=== PATIENT | female | born 1945 | race Caucasian/White ===

== ENCOUNTER 2017-08-25 10:50 | Outpatient (CLI) | payer MEDICARE, OTHER ==
[2015-04-29 09:23] VITALS: BP 153/90
[2017-08-25 11:36] LABS: eGFR (African) > 60; eGFR (Non-African) > 60
== END 2017-08-25 10:52 ==
LOC: LAB 10:50
PROVIDERS: ATTEND Family Medicine
DX: E78.2 Mixed hyperlipidemia (principal)
CPT/HCPCS: 36415; 80053; 80061

== ENCOUNTER 2018-06-24 20:22 | Emergency (ER) | payer MEDICARE, OTHER ==
--- NOTE | 2018-06-24 21:58 | ED Physician Documentation ---
General Adult - HISTORIAN Historian: patient, other (friend) - HPI Stated Complaint: unable to void Chief Complaint: General Adult Further Comments: yes (72 year old female patient presents with complaint of "unable to void". Patiet is 7 days post retrocele and cystocele repair; murdock catheter was removed at Dr Andersen's office this morning, patient was taught self cath. Has been unable to void since arrival home; patient states she came home and took a hot bath per Dr Andersen's orders; reports small amount of dribbling. Attempted to self cath at home; unsuccessful.) - ROS CONST: no problems EYES/ENT: none CVS/RESP: none GI/: none MS/SKIN/LYMPH: none NEURO/PSYCH: denies: headache, fainting, dizziness, tingling, numbness, difficulty walking, difficulty with speech, anxiety, depression, other - PAST HX Past History: hypertension, other (HLD) Surgeries/Procedures: hysterectomy, other (appendectomy) Allergies/Adverse Reactions: Allergies Allergy/AdvReac Type Severity Reaction Status Date / Time codeine [Codeine] AdvReac Hallucinati Verified 06/24/18 21:09 ons - SOCIAL HX Smoking History: non-smoker - FAMILY HX Family History: No - VITAL SIGNS Vital Signs: Vital Signs Temp Pulse Resp BP Pulse Ox 153/90 04/29/15 09:20 - REVIEWED ASSESSMENTS Nursing Assessment Reviewed: Yes Vitals Reviewed: Yes Progress - Progress Progress: Moderate amount of edema noted in Labia minora and majora. Murdock catheter place with no difficulty. Extensive education with patient and friend on catheter care; ice to decrease edema and leg bag. Instructed to keep appointment with Dr Andersen on Wednesday. ED Results Lab/Radiology - Orders Orders: ED Orders Category Date Time Status Murdock [Urinary catheterization] 1T Care 06/24/18 21:04 Active General Adult Physical Exam - PHYSICAL EXAM GENERAL APPEARANCE: mild distress EENT: eye inspection normal, MARLEN RESPIRATORY: no resp distress, chest non-tender, breath sounds normal CVS: reg rate & rhythm, heart sounds normal, equal pulses, no murmur, no gallop, PMI nml, no JVD, no friction rub, 24 ABDOMEN: soft, no organomegaly, normal bowel sounds, no abdominal bruit, no distension, other (bladder distention palpable) SKIN: warm/dry, pallor EXTREMITIES: non-tender, normal range of motion, no evidence of injury, no edema, J, [employer]IOR [employer]IM[employer] TRA[employer]ER NEURO: oriented X3, CN's nml as tested, motor nml, sensation nml, mood/affect nml Discharge Clincal Impression: Urinary retention, Labial swelling Referrals: Dustin Andersen SR, MD [Primary Care Provider] - 2 Days Additional Instructions: Keep your appointment with Dr Andersen on Wednesday Ice as needed for swelling. Keep the murdock bag below the level of your bladder for optimal drainage. Condition: Stable Disposition: 01 HOME, SELF-CARE Decision to Admit: NO Decision Time: 22:07
[2018-06-24 22:10] VITALS: BP 179/83
== END 2018-06-24 21:50 | disposition home or self-care (01) ==
LOC: ED 20:22
DX: R33.9 Retention of urine, unspecified (principal); N90.89 Other specified noninflammatory disorders of vulva and perineum
CPT/HCPCS: 51702; 99283

== ENCOUNTER 2018-07-04 11:40 | Outpatient (CLI) | payer MEDICARE, OTHER ==
[2018-07-04 13:01] LABS: eGFR (African) > 60; eGFR (Non-African) > 60
== END 2018-07-04 11:42 ==
LOC: LAB 11:40
PROVIDERS: ATTEND Family Medicine
DX: E78.2 Mixed hyperlipidemia (principal)
CPT/HCPCS: 36415; 80053; 80061

== ENCOUNTER 2019-05-31 15:28 | Outpatient (CLI) | payer MEDICARE, OTHER ==
[2019-05-31 15:47] LABS: APPEARANCE,URINE CLEAR (CLEAR); COLOR,URINE YELLOW (YELLOW)
[2019-05-31 15:48] LABS: OCCULT BLOOD,URINE TRACE-INTACT (NEGATIVE); PH URINE 5.5 (5.0 - 8.0); UROBILINOGEN URINE 0.2 Eu (0.2-1.0)
== END 2019-05-31 15:30 ==
LOC: LAB 15:28
PROVIDERS: ATTEND Family Medicine
DX: R30.0 Dysuria (principal)
CPT/HCPCS: 81002